=== PATIENT | female | born 1965 | race Caucasian/White ===

== ENCOUNTER 2019-01-29 16:52 | Emergency (ER) | payer OTHER ==
[~2019-01-29] VITALS: Ht 172.7 cm; Wt 92.1 kg
--- OUTSIDE RECORDS SUMMARY | 2019-01-29 16:54 | XMS ---
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 Cecelia has no Care Guidelines for this patient. Francois VISIT COUNT (12 MO.) 1 [facility] 1 NATHALIE Herman TOTAL 2 NOTE: Visits indicate total known visits. ED/C VISIT TRACKING (12 MO.) 01/29/2019 16:52 NATHALIE [facility] [place] TYPE: Emergency COMPLAINT: - NECK PAIN 01/18/2019 15:01 [facility] Jazmin VERA TYPE: Emergency DIAGNOSES: - Neck Pain - pt with no recall of what happened but woke up in batht - Syncope - pt with no recall of what happened but woke up in bathtub last night reports neck pain, bilateral shoulder pain R worse then L, and headache, Pt states she bit her tongue INPATIENT VISIT TRACKING (12 MO.) No inpatient visits to display in this time frame [email or web address]
[2019-01-29] MEDS ORDERED: GABAPENTIN600 MG PO (17:26)
[2019-01-29] MEDS ORDERED: SIMVASTATIN20 MG PO (17:27)
[2019-01-29] MEDS ORDERED: TOPROL XL25 MG PO (17:27)
[2019-01-29] MEDS ORDERED: LEVOTHYROXINE75 MCG PO (17:30)
[2019-01-29] MEDS ORDERED: GLUCOPHAGE500 MG PO (17:31)
[2019-01-29] MEDS ORDERED: SINGULAIR10 MG PO (17:33)
[2019-01-29] MEDS ORDERED: ESTRADIOL1 MG PO (17:34)
[2019-01-29] MEDS ORDERED: CETIRIZINE HCL10 MG PO (17:36)
[2019-01-29] MEDS ORDERED: PANTOPRAZOLE SO40 MG PO (17:36)
[2019-01-29] MEDS ORDERED: PROVERA5 MG PO (17:36)
[2019-01-29] MEDS ORDERED: CLONAZEPAM1 MG PO (17:37)
[2019-01-29] MEDS ORDERED: MAGNESIUM250 M1 PO (17:37)
[2019-01-29] MEDS ORDERED: SYMBICORT 16010.2 GM INH (17:38)
[2019-01-29] MEDS ORDERED: VENTOLIN HFA18 GM INH (17:43)
[2019-01-29] MEDS ORDERED: FLOVENT DISKUS50 MCG INH (17:43)
[2019-01-29] MEDS ORDERED: DULOXETINE HCL30 MG PO (17:44)
[2019-01-29] MEDS ORDERED: IPRAT-ALBUT 0.5-3 ML INH (17:44)
[2019-01-29] MEDS ORDERED: REQUIP0.25 MG PO (17:44)
[2019-01-29] MEDS ORDERED: CYCLOBENZAPRINE10 MG PO ×2 (17:45→19:01)
[2019-01-29] MEDS ORDERED: VITAMIN D50000 UNI1 PO (17:45)
[2019-01-29] MEDS ORDERED: NIACIN500 M3 PO (17:46)
[2019-01-29] MEDS ORDERED: MOBIC7.5 MG PO (17:46)
== END 2019-01-29 19:26 | disposition home or self-care (01) ==
LOC: ED 16:52
DX: S29.012A Strain of muscle and tendon of back wall of thorax, initial encounter (principal); J45.909 Unspecified asthma, uncomplicated; Z79.899 Other long term (current) drug therapy; W18.30XA Fall on same level, unspecified, initial encounter
CPT/HCPCS: 72070; 99283-25

== ENCOUNTER 2022-02-23 17:52 | Emergency (ER) | payer OTHER ==
[~2022-02-23] VITALS: Ht 172.7 cm; Wt 101.9 kg
[~2022-02-23 17:52] MED LIST: CETIRIZINE HCL10 MG PO; CLONAZEPAM1 MG PO; CYCLOBENZAPRINE10 MG PO; DULOXETINE HCL30 MG PO; ESTRADIOL1 MG PO; FLOVENT DISKUS50 MCG INH; GABAPENTIN600 MG PO; GLUCOPHAGE500 MG PO; IPRAT-ALBUT 0.5-3 ML INH; LEVOTHYROXINE75 MCG PO; MAGNESIUM250 M1 PO; MOBIC7.5 MG PO; NIACIN500 M3 PO; PANTOPRAZOLE SO40 MG PO; PROVERA5 MG PO; REQUIP0.25 MG PO; SIMVASTATIN20 MG PO; SINGULAIR10 MG PO; SYMBICORT 16010.2 GM INH; TOPROL XL25 MG PO; VENTOLIN HFA18 GM INH; VITAMIN D50000 UNI1 PO
--- OUTSIDE RECORDS SUMMARY | 2022-02-23 17:56 | XMS ---
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 E.Joyce. VISIT COUNT (12 MO.) [address] TOTAL 2 NOTE: Visits indicate total known visits. ED/C VISIT TRACKING (12 MO.) 02/23/2022 17:53 NATHALIE [facility] [place] TYPE: Emergency COMPLAINT: - NECK INJURY 02/23/2022 13:46 [facility] Jazmin VERA TYPE: Emergency DIAGNOSES: - Neck Pain - Shoulder Pain INPATIENT VISIT TRACKING (12 MO.) No inpatient visits to display in this time frame [id number]
[2022-02-23] MEDS ORDERED: VITAMIN D325 MCG PO (21:22)
[2022-02-23] MEDS ORDERED: DULOXETINE HCL60 MG PO (21:22)
[2022-02-23] MEDS ORDERED: OXYCODONE-ACET1 EAC3 PO (21:23)
[2022-02-23] MEDS ORDERED: METFORMIN HCL1000 MG PO (21:23)
[2022-02-23] MEDS ORDERED: ROPINIROLE HCL5 MG PO (21:23)
[2022-02-23] MEDS ORDERED: FEROSUL325 MG PO (21:23)
[2022-02-23] MEDS ORDERED: LISINOPRIL5 MG PO (21:23)
[2022-02-23] MEDS ORDERED: METOPROLOL TART50 MG PO (21:23)
== END 2022-02-24 00:53 | disposition home or self-care (01) ==
LOC: ED 17:52
DX: M54.2 Cervicalgia (principal); G89.29 Other chronic pain; W22.09XA Striking against other stationary object, initial encounter; Z79.84 Long term (current) use of oral hypoglycemic drugs; Z79.899 Other long term (current) drug therapy; Z98.1 Arthrodesis status
CPT/HCPCS: 72125; J2060

== ENCOUNTER 2024-06-05 04:22 | Emergency (ER) | payer OTHER ==
[~2024-06-05] VITALS: Ht 172.7 cm; Wt 110.0 kg
[~2024-06-05 04:22] MED LIST changes: +DULOXETINE HCL60 MG PO; +FEROSUL325 MG PO; +LISINOPRIL5 MG PO; +METFORMIN HCL1000 MG PO; +METOPROLOL TART50 MG PO; +OXYCODONE-ACET1 EAC3 PO; +ROPINIROLE HCL5 MG PO; +VITAMIN D325 MCG PO
[2024-06-05] MEDS ORDERED: ANASTROZOLE1 MG PO (04:36)
[2024-06-05 04:43] LABS: BASOPHILS 0.9 % (0-2); EOSINOPHILS 6.6 % (0-6); HEMATOCRIT 38.5 % (35.0-50.0); HEMOGLOBIN 12.5 g/dL (12.0-18.0); LYMPHOCYTES 15.2 % (24-44); MCH 27.8 (27-36); MCHC 32.4 g/dl (30-36); MCV 85.8 fl (81-99); MONOCYTES 7.1 % (0-12); NEUTROPHILS 70.2 % (39-80); PLATELET COUNT 266 K/uL (140-440); RBC 4.49 M/ul (4.3-5.7); RDW 16.4 (10.5-15.0)
[2024-06-05] MEDS ORDERED: ALBUTEROL/IPRATROPIUM 3 ML NEB INH ONE (04:45)
[2024-06-05] MEDS ORDERED: NITROGLYCERIN PACKET TOP ONE (04:45)
[2024-06-05] MEDS ORDERED: ASPIRIN 81 MG CHEW PO ONE (04:45)
[2024-06-05 05:16] LABS: ALBUMIN 3.1 g/dL (3.4-5.0); ANION GAP 6.3 (7-21); BILIRUBIN, TOTAL 0.5 ng/dL (0.2-1.0); BUN/CREATININE RATIO 8.2 (6.0-28.6); CALCIUM 9.2 mg/dL (8.5-10.1); CREATININE, SERUM 1.34 mg/dL (0.55-1.02); MAGNESIUM 1.8 mg/dL (1.8-2.4); POTASSIUM 4.3 mmol/L (3.5-5.1); PROTEIN, TOTAL 6.2 g/dL (6.4-8.2)
[2024-06-05 05:17] LABS: INFLUENZA B NAA NEGATIVE (NEGATIVE); RESPIRATORY SYNCYTIAL VIR NAA NEGATIVE (NEGATIVE)
[2024-06-05] MEDS ORDERED: AZITHROMYCIN/DEXTROSE 500 MG/250 ML BAG IV ONE (05:45)
[2024-06-05] MEDS ORDERED: CEFTRIAXONE/SODIUM CHLORIDE 2 GM/100 ML PIGGYBACK IV ONE (05:45)
[2024-06-05] MEDS ORDERED: FUROSEMIDE 40 MG/4 ML VIAL IV ONE (05:45)
[2024-06-05] MEDS ORDERED: AZITHROMYCIN500 MG PO (07:02)
[2024-06-05] MEDS ORDERED: CEFDINIR300 MG PO (07:02)
[2024-06-05] MEDS ORDERED: LASIX40 MG PO (07:03)
[2024-06-05] MEDS ORDERED: methylPREDNISolone 4 MG HOME.PACK PO ONE (07:15)
[2024-06-05 08:15] VITALS: BP 132/78
--- NOTE | 2024-06-07 14:39 | EKG ---
[facility] [address] [facility] [place], [place] [address] Signed Normal sinus rhythm Low voltage QRS Cannot rule out Anterior infarct , age undetermined Abnormal ECG No previous ECGs available Confirmed by David Grier MD ([id number]) on 06/07/2024 2:39:31 PM Electronically Signed By: DAVID GRIER DO 06/07/24 1439 PATIENT NAME: KINJAL BOSE TY Electrocardiogram DATE OF : 63 PHYSICIAN: DAVID GRIER DO REPORT #: [id number] REPORT IS CONFIDENTIAL AND NOT TO BE RELEASED WITHOUT AUTHORIZATION
== END 2024-06-05 08:17 | disposition home or self-care (01) ==
LOC: ED 04:22
PROVIDERS: Family Medicine
DX: J18.9 Pneumonia, unspecified organism (principal); I50.9 Heart failure, unspecified; R73.03 Prediabetes; Z79.84 Long term (current) use of oral hypoglycemic drugs; Z79.899 Other long term (current) drug therapy; Z79.890 Hormone replacement therapy
CPT/HCPCS: 36415; 71045; 71260; 80053; 83735; 83880; 84484; 85025; 85379; 87502; 93005; 93010; 94640; 99285-25; A9270; J0456; J0696; J1940; Q9967; U0002

== ENCOUNTER 2025-01-24 17:01 | Emergency (ER) | payer OTHER ==
[~2025-01-24] VITALS: Ht 172.7 cm; Wt 102.5 kg
[~2025-01-24 17:01] MED LIST changes: +ANASTROZOLE1 MG PO; +AZITHROMYCIN500 MG PO; +CEFDINIR300 MG PO; +LASIX40 MG PO
[2025-01-24] MEDS ORDERED: diazePAM 10 MG/2 ML SYR IM ONE (17:15)
[2025-01-24] MEDS ORDERED: KETOROLAC TROMETHAMINE 60 MG/2 ML VIAL IM ONE (17:15)
[2025-01-24] MEDS ORDERED: PREGABALIN200 MG PO (18:04)
[2025-01-24] MEDS ORDERED: ATORVASTATIN CA80 MG PO (18:06)
[2025-01-24] MEDS ORDERED: MORPHINE SULFAT15 M1 PO (18:07)
[2025-01-24] MEDS ORDERED: FISH OIL 1,4001 EAC1 PO (18:09)
[2025-01-24] MEDS ORDERED: LIRAGLUTID0.6 MG/0.1 SUB-Q (18:09)
[2025-01-24] MEDS ORDERED: ARNUITY ELLIPT50 MCG INH (18:10)
[2025-01-24] MEDS ORDERED: SYMBICORT 16010.2 GM INH (18:10)
[2025-01-24] MEDS ORDERED: CYCLOBENZAPRINE10 MG PO (18:45)
[2025-01-24] MEDS ORDERED: methylPREDNISolone 4 MG HOME.PACK PO ONE (18:45)
[2025-01-24] MEDS ORDERED: HYDROCODONE BIT/ACETAMINOPHEN 5/325 MG 1 TAB HOME.PACK PO ONE (18:45)
[2025-01-24] MEDS ORDERED: HYDROCODON-ACE1 EA10 PO (18:45)
[2025-01-24] MEDS ORDERED: CYCLOBENZAPRINE HCL 10 MG HOME.PACK PO ONE (18:45)
[2025-01-24 19:20] VITALS: BP 123/74
== END 2025-01-24 19:20 | disposition home or self-care (01) ==
LOC: ED 17:01
DX: M51.361 Other intervertebral disc degeneration, lumbar region with lower extremity pain only (principal); S83.92XA Sprain of unspecified site of left knee, initial encounter; E03.9 Hypothyroidism, unspecified; J45.909 Unspecified asthma, uncomplicated; E78.00 Pure hypercholesterolemia, unspecified; X58.XXXA Exposure to other specified factors, initial encounter; Z79.899 Other long term (current) drug therapy; Z79.51 Long term (current) use of inhaled steroids
CPT/HCPCS: 72100; 73560; 73630; 96372; 99283; A9270; J1885; J3360

== ENCOUNTER 2025-03-02 20:58 | Emergency (ER) | payer OTHER ==
[~2025-03-02] VITALS: Ht 172.7 cm; Wt 102.5 kg
[~2025-03-02 20:58] MED LIST changes: +ARNUITY ELLIPT50 MCG INH; +ATORVASTATIN CA80 MG PO; +FISH OIL 1,4001 EAC1 PO; +HYDROCODON-ACE1 EA10 PO; +LIRAGLUTID0.6 MG/0.1 SUB-Q; +MORPHINE SULFAT15 M1 PO; +PREGABALIN200 MG PO
[2025-03-02] MEDS ORDERED: TRIAMCINOLONE ACET 40 MG/ML VIAL 1 ML IAARTIC ONE (21:45)
[2025-03-02] MEDS ORDERED: methylPREDNISolone 4 MG HOME.PACK PO ONE (23:30)
[2025-03-02 23:56] VITALS: BP 116/79
== END 2025-03-02 23:55 | disposition home or self-care (01) ==
LOC: ED 20:58
DX: M17.12 Unilateral primary osteoarthritis, left knee (principal); M71.22 Synovial cyst of popliteal space [Baker], left knee; J45.909 Unspecified asthma, uncomplicated; Z79.2 Long term (current) use of antibiotics
CPT/HCPCS: 20610; 93971; 99283-25; J3301